=== PATIENT | female | born 1950 | race Caucasian/White ===

== ENCOUNTER 2020-09-18 00:30 | Emergency (ER) | payer OTHER, MEDICARE ==
[2020-09-18 00:46] VITALS: BP 139/83; PULSE 70; TEMP 98.1; BMI 25.5
== END 2020-09-18 02:20 | disposition home or self-care (01) ==
LOC: FER 00:30
DX: S50.02XA Contusion of left elbow, initial encounter (principal); S00.01XA Abrasion of scalp, initial encounter; S20.212A Contusion of left front wall of thorax, initial encounter
CPT/HCPCS: 70450-TC; 71046-TC-FY; 99284-25